=== PATIENT | female | born 1980 | race Caucasian/White ===

== ENCOUNTER → 2021-04-18 07:24 | Outpatient (CLI) | payer OTHER, SELFPAY ==
--- NOTE | ~2021-04-18 | MM_ITS ---
EXAMINATION: MM screening [facility] BI w benita HISTORY: Screening TECHNIQUE: Craniocaudal and mediolateral oblique 3-D tomosynthesis images were obtained and synthetic 2-D images were generated. CAD analysis was submitted and interpreted. COMPARISON: 10/14/2018 BREAST PARENCHYMAL COMPOSITION: The breasts are extremely dense, which lowers the sensitivity of mamm ography. FINDINGS: There is no evidence of suspicious mass, calcification, or architectural distortion to sugg est malignancy in either breast. There has been no suspicious interval change. IMPRESSION: 1. No mammographic evidence of malignancy. 2. Recommend routine screening mammography in one year. BI-RADS Category 1: Negative Reviewed, dictated and finalized at location A.
== END ==
PROVIDERS: PCP Nurse Practitioner Adult Health; Visit Provider Nurse Practitioner Adult Health
DX: Z12.31 Encounter for screening mammogram for malignant neoplasm of breast (principal)
CPT/HCPCS: 77063; 77067

== ENCOUNTER → 2022-02-19 08:31 | Outpatient (CLI) | payer OTHER, SELFPAY ==
--- NOTE | ~2022-02-19 | MMUS_ITS ---
EXAMINATION: MM diagnostic [facility] BI w benita, US breast BI complete HISTORY: Palpable breast abnormality TECHNIQUE: Additional 3-D tomosynthesis images of the breasts were performed and synthetic 2-D images were generated. CAD analysis was submitted and interpreted. High resolution complete bilateral breas t ultrasound was performed. COMPARISON: Comparison to multiple prior studies sequentially, with oldest reviewed study dated 01/2019. BREAST PARENCHYMAL COMPOSITION: The breasts are extremely dense, which lowers the sensitivity of mamm ography FINDINGS: MAMMOGRAPHIC FINDINGS: There are no suspicious masses, calcifications or architectural distortion in either breast to sugges t malignancy. ULTRASOUND: Complete bilateral US of all 4 quadrants of the breasts and retroareolar region was reviewed. Right breast: There are multiple simple and complicated cysts. At 9:00, 4 cm from the nipple there is a 7 mm intramammary lymph node. At 11:00, 6 cm from the nipple there is an oval hypoechoic mass jovany uring 6 mm with parallel orientation, no internal vascularity or posterior features. Left breast ultrasound: Multiple simple and complicated cysts. At 2:00, 5 cm from the nipple there is an oval hypoechoic mass with enhanced through transmission, parallel orientation measuring 7 mm. No internal vascularity. At 6:00, 3 cm from the nipple there is an irregular shaped hypoechoic mass with thick internal septations measuring up to 1.3 cm. No internal vascularity. There is posterior acoust ic enhancement. Its 9:00, 4 cm from the nipple there is a 6 mm intramammary lymph node. There is a sm aller 5 mm lymph node at this location. At 11:00, 3 cm from the nipple there is a complicated cyst wi th internal septations, likely benign. IMPRESSION: 1. Irregular shaped hypoechoic mass of the left breast at 6:00, 3 cm from the nipple measuring up to 1.3 cm. 2. Ultrasound-guided left breast biopsy recommended. BI-RADS category 4, suspicious findings. Reviewed, dictated and finalized at location A. IMPRESSION: 1. Irregular shaped hypoechoic mass of the left breast at 6:00, 3 cm from the n ipple measuring up to 1.3 cm. 2. Ultrasound-guided left breast biopsy recommended. BI-RADS category 4, suspicious findings.
== END ==
PROVIDERS: PCP Nurse Practitioner Adult Health
DX: N63.10 Unspecified lump in the right breast, unspecified quadrant (principal); R92.8 Other abnormal and inconclusive findings on diagnostic imaging of breast
CPT/HCPCS: 76641; 77062; 77066; G0279